=== PATIENT | female | born 1995 | race Caucasian/White ===

== ENCOUNTER 2019-09-29 13:36 | Emergency (ER) | payer OTHER ==
--- NOTE | 2019-09-29 14:10 | EDM.PDOC ---
ED HPI GENERAL MEDICAL PROBLEM - General Chief Complaint: Lower Extremity Injury/Pain Stated Complaint: FELL HURT HER ARM Time Seen by Provider: 09/29/19 13:38 Source of Information: Reports: Patient History Limitations: Reports: No Limitations - History of Present Illness INITIAL COMMENTS - FREE TEXT/NARRATIVE: She has a 24-year-old female who states she slipped on icy walkway last night injuring her left knee and her right shoulder. Both these areas have been injured in the past. She is complaining of swelling of both shoulder and knee which I do not appreciate on my exam. When I informed her that I recommend ibuprofen she says she is not allowed to take that because it is torn up her stomach in the past and is requesting some tramadol. When examining her knee she initially complained she is not able to straighten the knee out but she was able to do this.assistance from my exam. I am underwhelmed with the degree of injury even though she is complaining of severe pain particularly the shoulder. I do not see any hematoma or ecchymoses or erythema to to either knee or shoulder. Patient has no other complaints. She has been treating herself with Tylenol. 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 left knee Pain Score (Numeric/FACES): 9 right shoulder Pain Score (Numeric/FACES): 10 - Related Data Allergies Allergy/AdvReac Type Severity Reaction Status Date / Time Penicillins Allergy Other Verified 09/29/19 13:49 Home Meds: Home Meds Lidocaine 5% [Lidoderm 5%] 1 patch TOP DAILY #10 patch 09/29/19 [Rx] traMADol [Ultram] 50 mg PO Q6H PRN #7 tab 09/29/19 [Rx] Past Medical History - Past Health History Medical/Surgical History: Denies 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 ED EXAM, GENERAL - Physical Exam Exam: See Below Free Text/Narrative:: Exam: See Below Exam Limited By: No Limitations Head: Atraumatic Neck: Normal Inspection. No: Carotid Bruit, Lymphadenopathy (R) Respiratory/Chest: No Respiratory Distress, Lungs Clear, Normal Breath Sounds, No Accessory Muscle Use. No: Chest Non-Tender Cardiovascular: Normal Peripheral Pulses, Regular Rate, Rhythm, No Edema, No JVD GI/Abdominal: Normal Bowel Sounds, Tender. No: Non-Tender, no Splenomegaly Back Exam: Normal Inspection. No: CVA Tenderness (R) Extremities: Normal Inspection. No: No Pedal Edema. No effusion ecchymosis hematoma erythematous to the knee. Patient has full range of motion of the knee and is neurovascularly intact. Neurological: Alert, Oriented, Normal Cognition Psychiatric: Normal Affect Skin Exam: Warm Lymphatic: No Adenopathy Course - Vital Signs Last Recorded V/S: Last Vital Signs Temp 36.2 C 09/29/19 13:46 Pulse 120 H 09/29/19 13:46 Resp 18 09/29/19 13:46 BP Pulse Ox 98 09/29/19 13:46 - Orders/Labs/Meds Orders: Active Orders 24 hr Category Date Time Status DME for Discharge [COMM] Stat Oth 09/29/19 14:20 Ordered Departure - Departure Time of Disposition: 14:14 Disposition: Home, Self-Care 01 Condition: Good Clinical Impression: Rotator cuff (capsule) sprain, Left knee sprain, Sprain of knee - Discharge Information Prescriptions: Lidocaine 5% [Lidoderm 5%] 1 patch TOP DAILY #10 patch traMADol [Ultram] 50 mg PO Q6H PRN #7 tab PRN Reason: Pain (Moderate 4-6) Instructions: Shoulder Arthroscopy, Knee Sprain, Adult, [id number] Referrals: PCP,Not In Area [Primary Care Provider] - Forms: ED Department Discharge Additional Instructions: Ice and/or Tylenol. Lidoderm as needed. Tramadol if needed. Follow-up with Ortho for recheck as soon as possible. The following information is given to patients seen in the emergency department who are being discharged to home. This information is to outline your options for follow-up care. We provide all patients seen in our emergency department with a follow-up referral. The need for follow-up, as well as the timing and circumstances, are variable depending upon the specifics of your emergency department visit. If you don't have a primary care physician on staff, we will provide you with a referral. We always advise you to contact your personal physician following an emergency department visit to inform them of the circumstance of the visit and for follow-up with them and/or the need for any referrals to a consulting specialist. The emergency department will also refer you to a specialist when appropriate. This referral assures that you have the opportunity for follow-up care with a specialist. All of these measure are taken in an effort to provide you with optimal care, which includes your follow-up. Under all circumstances we always encourage you to contact your private physician who remains a resource for coordinating your care. When calling for follow-up care, please make the office aware that this follow-up is from your recent emergency room visit. If for any reason you are refused follow-up, please contact the [facility] Emergency Department at and asked to speak to the emergency department charge nurse. Sepsis Event Note - Evaluation Sepsis Screening Result: No Definite Risk - Focused Exam Vital Signs: Vital Signs Temp Pulse Resp Pulse Ox 09/29/19 13:46 36.2 C 120 H 18 98 Date Exam was Performed: 09/29/19 Time Exam was Performed: 14:20 - My Orders Last 24 Hours: My Active Orders 09/29/19 14:20 DME for Discharge [COMM] Stat - Assessment/Plan Last 24 Hours: My Active Orders 09/29/19 14:20 DME for Discharge [COMM] Stat
== END 2019-09-29 15:26 | disposition home or self-care (01) ==
LOC: MW.ED 13:36
DX: S43.421A Sprain of right rotator cuff capsule, initial encounter (principal); S83.92XA Sprain of unspecified site of left knee, initial encounter; Z88.0 Allergy status to penicillin; Z98.890 Other specified postprocedural states; Z90.49 Acquired absence of other specified parts of digestive tract; Z98.51 Tubal ligation status; W00.0XXA Fall on same level due to ice and snow, initial encounter
CPT/HCPCS: 99283